=== PATIENT | male | born 1975 | race Caucasian/White ===

== ENCOUNTER → 2018-09-25 | Outpatient (CLI) | payer OTHER ==
[~2018-09-25] MED LIST: FLEXERIL PO; NAPROSYN500 MG PO; NORCO 5-325 TA1 EACH PO
== END ==
LOC: M.RAD 09:21
DX: M79.89 Other specified soft tissue disorders (principal); M25.521 Pain in right elbow

== ENCOUNTER → 2020-06-14 | Outpatient (CLI) | payer OTHER ==
[~2020-06-14] MED LIST changes: +JARDIANCE10 MG PO; +LIPITOR10 MG PO; +LISINOPRIL2.5 MG PO; +METFORMIN HCL500 M3 PO; +TRADJENTA5 MG
== END ==
LOC: M.PC 02:43
PROVIDERS: ATTEND Physical Medicine & Rehabilitation
DX: M51.16 Intervertebral disc disorders with radiculopathy, lumbar region (principal); M47.26 Other spondylosis with radiculopathy, lumbar region; R20.0 Anesthesia of skin